=== PATIENT | male | born 1960 | race Caucasian/White ===

== ENCOUNTER 2021-02-11 19:11 | Emergency (ER) | payer BC, OTHER ==
[2021-02-11 19:54] LABS: PTT,PARTIAL THROMBOPLSTIN TIME 20.7 SEC (23.2-32.3)
[2021-02-11 19:56] LABS: CHLORIDE,CL 101 mEq/L (98-106); SODIUM,NA 137 mEq/L (136-145)
[2021-02-11] MEDS ORDERED: Ondansetron 4 MG/2 ML SDV IVPUSH PRN (19:57)
[2021-02-11] MEDS ORDERED: Meclizine 12.5 MG Tab PO ONE (20:01)
[2021-02-11] MEDS ORDERED: Take Home: Ondansetron 4 MG Tab.DIS, 2 Tab Pack ONE (20:32)
[2021-02-11] MEDS ORDERED: Take Home: Meclizine 12.5 MG Tab, 4 Tab Pack ONE (20:32)
[2021-02-11] MEDS ORDERED: Take Home: Ondansetron 4 MG Tab.DIS, 2 Tab Pack PO ONE (20:47)
[2021-02-11] MEDS ORDERED: Take Home: Meclizine 12.5 MG Tab, 4 Tab Pack PO ONE (20:48)
--- NOTE | 2021-02-11 20:51 | EDM.PDOC ---
ED HPI GENERAL MEDICAL PROBLEM - General Chief Complaint: Chest Pain Stated Complaint: dizzy, short of breath, and chest tightness Time Seen by Provider: 02/11/21 19:48 Source of Information: Reports: Patient, RN History Limitations: Reports: No Limitations - History of Present Illness INITIAL COMMENTS - FREE TEXT/NARRATIVE: He states that he was bending over and taking off his boots and he suddenly became extremely dizzy with the room spinning in circles, he was nauseated, and he broke out in cold sweat. He did not pass out. No chest pain. Everytime he moves his head or changes position the room spins again. He is very nauseated but is better if still. States that he was fine prior to this happening. Onset: Sudden Associated Symptoms: Reports: Nausea/Vomiting Headache Pain Score (Numeric/FACES): 5 - Related Data Allergies Allergy/AdvReac Type Severity Reaction Status Date / Time No Known Allergies Allergy Verified 02/11/21 19:29 Home Meds: Home Meds Lisinopril/Hydrochlorothiazide [Lisinopril-HCTZ 10-12.5 MG] 10 mg PO DAILY 02/11/21 [History] Pravastatin [Pravachol] 40 mg PO DAILY 02/11/21 [History] Past Medical History Cardiovascular History: Reports: High Cholesterol, Hypertension Social & Family History - Tobacco Use Tobacco Use Status *Q: Never Tobacco User ED ROS GENERAL - Review of Systems Review Of Systems: See Below Constitutional: Reports: Chills, Weakness. Denies: Fever HEENT: Reports: Vertigo Respiratory: Reports: No Symptoms Cardiovascular: Denies: Chest Pain GI/Abdominal: Reports: Nausea, Vomiting Musculoskeletal: Reports: No Symptoms Skin: Reports: No Symptoms Neurological: Reports: Other (vertigo) ED EXAM, GENERAL - Physical Exam Exam: See Below Exam Limited By: No Limitations General Appearance: Alert, WD/WN, Mild Distress Ears: Normal External Exam, Normal Canal, Normal TMs Nose: Normal Inspection Throat/Mouth: Normal Inspection, Normal Oropharynx, No Airway Compromise Head: Atraumatic, Normocephalic Neck: Normal Inspection, Supple, Non-Tender Respiratory/Chest: No Respiratory Distress, Lungs Clear, Normal Breath Sounds Cardiovascular: Regular Rate, Rhythm, No Edema GI/Abdominal: Normal Bowel Sounds, Soft, Non-Tender Extremities: No Pedal Edema, Normal Capillary Refill Neurological: Alert, Oriented, CN II-XII Intact, Normal Cognition Skin Exam: Warm, Dry, Intact Course - Vital Signs Last Recorded V/S: Last Vital Signs Temp 97.2 F 02/11/21 20:19 Pulse 71 02/11/21 20:19 Resp 16 02/11/21 20:19 BP 118/76 02/11/21 20:19 Pulse Ox 93 L 02/11/21 20:19 - Orders/Labs/Meds Orders: Active Orders 24 hr Category Date Time Status Ondansetron [Zofran] Med 02/11/21 19:57 Active 4 mg IVPUSH Q6H PRN Medication Orders Ondansetron HCl (Ondansetron 4 Mg/2 Ml Sdv) 4 mg IVPUSH Q6H PRN PRN Reason: Nausea Last Admin: 02/11/21 20:03 Dose: 4 mg Documented by: KILO Labs: Laboratory Tests 02/11/21 02/11/21 02/11/21 Range/Units 19:40 19:40 19:40 WBC 5.6 (4.0-11.0) 10^3/uL RBC 4.62 (4.50-6.00) x10^6/uL Hgb 14.2 (14.0-18.0) g/dL Hct 41.3 L (42.0-52.0) % MCV 89.4 (83.0-97.0) fL MCH 30.7 (27.0-32.0) pg MCHC 34.4 (32.0-36.0) g/dL RDW Coeff of Kristin 12.6 (11.0-15.0) % Plt Count 244 (150-400) 10^3/uL Immature Gran % (Auto) 0.2 (0.0-4.9) % Neut % (Auto) 54.2 (41-71) % Lymph % (Auto) 33.0 (24-44) % Daggett % (Auto) 9.2 (0-10) % Eos % (Auto) 2.3 (0-6) % Baso % (Auto) 1.1 H (0-1) % Neut # (Auto) 3.01 (1.80-8.00) x10^3/uL Lymph # (Auto) 1.83 (0.60-5.00) 10^3/uL Daggett # (Auto) 0.51 (0.00-1.50) 10^3/uL Eos # (Auto) 0.13 (0.00-1.50) 10^3/uL Baso # (Auto) 0.06 (0.00-0.50) 10^3/uL Immature Gran # (Auto) 0.01 (0.00-0.49) 10^3/uL PT 10.6 (9.7-12.3) SEC INR 0.97 (0.92-1.18) APTT 20.7 L (23.2-32.3) SEC Sodium 137 (136-145) mEq/L Potassium 3.3 L D (3.5-5.0) mEq/L Chloride 101 (98-106) mEq/L Carbon Dioxide 22 (21-32) mmol/L BUN 16 (7-18) mg/dL Creatinine 1.1 (0.7-1.3) mg/dL Est Cr Clr Drug Dosing 77.01 mL/min Estimated GFR (MDRD) > 60 (>=60) mL/min Glucose 139 H D (75-99) mg/dL Calcium 9.1 (8.4-10.1) mg/dL Magnesium 2.0 (1.8-2.4) mg/dL Total Bilirubin 0.5 (0.0-1.0) mg/dL AST 16 (15-37) U/L ALT 28 (12-78) U/L Alkaline Phosphatase 51 (46-116) U/L Lactate Dehydrogenase 121 (100-190) U/L Creatine Kinase 37 (35-232) U/L Troponin I High Sens < 4 (<=76) pg/mL Total Protein 7.0 (6.4-8.2) g/dL Albumin 3.7 (3.4-5.0) g/dL Lipase 68 L (73-393) U/L SARS CoV-2 RNA Rapid LAKISHA (NEGATIVE) 02/11/21 Range/Units 19:40 WBC (4.0-11.0) 10^3/uL RBC (4.50-6.00) x10^6/uL Hgb (14.0-18.0) g/dL Hct (42.0-52.0) % MCV (83.0-97.0) fL MCH (27.0-32.0) pg MCHC (32.0-36.0) g/dL RDW Coeff of Kristin (11.0-15.0) % Plt Count (150-400) 10^3/uL Immature Gran % (Auto) (0.0-4.9) % Neut % (Auto) (41-71) % Lymph % (Auto) (24-44) % Daggett % (Auto) (0-10) % Eos % (Auto) (0-6) % Baso % (Auto) (0-1) % Neut # (Auto) (1.80-8.00) x10^3/uL Lymph # (Auto) (0.60-5.00) 10^3/uL Daggett # (Auto) (0.00-1.50) 10^3/uL Eos # (Auto) (0.00-1.50) 10^3/uL Baso # (Auto) (0.00-0.50) 10^3/uL Immature Gran # (Auto) (0.00-0.49) 10^3/uL PT (9.7-12.3) SEC INR (0.92-1.18) APTT (23.2-32.3) SEC Sodium (136-145) mEq/L Potassium (3.5-5.0) mEq/L Chloride (98-106) mEq/L Carbon Dioxide (21-32) mmol/L BUN (7-18) mg/dL Creatinine (0.7-1.3) mg/dL Est Cr Clr Drug Dosing mL/min Estimated GFR (MDRD) (>=60) mL/min Glucose (75-99) mg/dL Calcium (8.4-10.1) mg/dL Magnesium (1.8-2.4) mg/dL Total Bilirubin (0.0-1.0) mg/dL AST (15-37) U/L ALT (12-78) U/L Alkaline Phosphatase (46-116) U/L Lactate Dehydrogenase (100-190) U/L Creatine Kinase (35-232) U/L Troponin I High Sens (<=76) pg/mL Total Protein (6.4-8.2) g/dL Albumin (3.4-5.0) g/dL Lipase (73-393) U/L SARS CoV-2 RNA Rapid LAKISHA Negative (NEGATIVE) Meds: Medications Generic Name Dose Route Start Last Admin Trade Name Freq PRN Reason Stop Dose Admin Ondansetron HCl 4 mg 02/11/21 19:57 02/11/21 20:03 Ondansetron 4 Mg/2 Ml Sdv IVPUSH 4 mg Q6H PRN Administration Nausea Discontinued Medications Generic Name Dose Route Start Last Admin Trade Name Freq PRN Reason Stop Dose Admin Meclizine HCl 25 mg 02/11/21 20:01 02/11/21 20:05 Meclizine 12.5 Mg Tab PO 02/11/21 20:02 25 mg ONETIME ONE Administration - Re-Assessments/Exams Free Text/Narrative Re-Assessment/Exam: 02/11/21 20:50 when laying still he feels like his normal. When he turns his head he will get dizzy again. Departure - Departure Time of Disposition: 20:45 Disposition: Home, Self-Care 01 Condition: Good Clinical Impression: Inner ear dysfunction Qualifiers: Laterality: bilateral Qualified Code(s): H83.93 - Unspecified disease of inner ear, bilateral Referrals: PCP,None [Primary Care Provider] - Additional Instructions: meclizine 25 mg tae every 6 hours for dizziness zofran 4 mg take every hours for the nausea If not improved over the weekend call Physical Therapy or chiropractor on Sunday and get appt. Move slowly and turn body and head as 1 unit. Recheck with new concerns as needed. Sepsis Event Note (ED) - Evaluation Sepsis Screening Result: No Definite Risk - Focused Exam Vital Signs: Vital Signs Temp Pulse Resp BP Pulse Ox 02/11/21 20:19 97.2 F 71 16 118/76 93 L 02/11/21 19:54 97.3 F 68 18 117/74 95 02/11/21 19:44 97.3 F 68 20 108/73 92 L 02/11/21 19:11 96.7 F L 75 20 128/81 99 - My Orders Last 24 Hours: My Active Orders 02/11/21 19:57 Ondansetron [Zofran] 4 mg IVPUSH Q6H PRN - Assessment/Plan Last 24 Hours: My Active Orders 02/11/21 19:57 Ondansetron [Zofran] 4 mg IVPUSH Q6H PRN
== END 2021-02-11 21:00 | disposition home or self-care (01) ==
LOC: CC.ED 19:11
DX: H83.93 Unspecified disease of inner ear, bilateral (principal); E78.00 Pure hypercholesterolemia, unspecified; I10 Essential (primary) hypertension; Z20.822 Contact with and (suspected) exposure to COVID-19; Z79.899 Other long term (current) drug therapy
CPT/HCPCS: 36415; 80053; 82550; 83615; 83690; 83735; 84484; 85025; 85610; 85730; 93005; 96374; 99284-25; A9270-GY; J2405; U0002